=== PATIENT | male | born 1970 | race Caucasian/White ===

== ENCOUNTER 2020-09-19 14:35 | Inpatient (IN) ==
[2020-09-19] MEDS ORDERED: Naloxone 0.4 MG/ML INJ IVP PRN (17:16)
[2020-09-19] MEDS ORDERED: Isovue-370 500 ML BOTTLE IVP ONE (17:48)
[2020-09-19 18:12] LABS: BUN/Creatinine Ratio 14 (6-26); Blood Urea Nitrogen 14 mg/dL (6-20); Calcium 8.2 mg/dL (8.6-10.3); Carbon Dioxide 22 mEq/L (23-29); Chloride 98 mEq/L (98-107); Glucose 104 mg/dL (70-105); Osmolality,Calculated 279 (280-300); Potassium 3.2 mEq/L (3.5-5.1); Sodium 134 mEq/L (136-145); eGFR For African Americans > 60 (> 60); eGFR For Non-African Americans > 60 (> 60)
[2020-09-19] MEDS ORDERED: Ipratropium/Albuterol Neb 3 ML IH PRN (18:21)
[2020-09-19] MEDS: Ringers Solution, Lactated 1,000 ML IVC SCH (18:57)
[2020-09-19 18:58] LABS: Creatine Kinase 130 Units/L (30-223)
[2020-09-19] MEDS: Potassium Chloride Elixir 20 MEQ/15 ML UDC PO SCH ×2 (18:59→22:16)
[2020-09-19] MEDS: Ondansetron 4 MG/2 ML VIAL IVP PRN (19:10)
[2020-09-19 19:11] LABS: Thyroid Stimulating Hormone 2.032 mcIU/mL (0.340-5.600)
[2020-09-19] MEDS: *HR* Heparin 5,000 UNIT/ML VIAL SQ SCH (21:16)
[2020-09-19] MEDS: MetroNIDAZOLE 500 MG/100 ML 500 MG/100 ML BAG IVPB SCH ×3 (21:18→21:35)
[2020-09-20 02:21] LABS: Basophils # 0.1 K/mcL (0.0-0.2); Basophils % 0.4 %; Eosinophils # 0.3 K/mcL (0.0-0.6); Eosinophils % 1.9 %; Hematocrit 33.8 % (37.5-50.1); Hemoglobin 11.2 g/dL (12.9-16.9); Immature Granulocytes % 0.9 % (0-4); Lymphocytes # 3.4 K/mcL (0.6-4.6); Lymphocytes % 26.3 %; Mean Corpuscular HGB Conc 33.1 g/dL (31.6-35.5); Mean Corpuscular Volume 90.6 fL (83.0-100.0); Mean Platelet Volume 10.4 fL (9.4-12.4); Monocytes # 1.1 K/mcL (0.0-1.3); Monocytes % 8.7 %; Platelet Count 293 K/mcL (140-400); Red Blood Count 3.73 M/mcL (4.19-5.50); Red Cell Distribution Width 17.2 % (11.5-14.5); Segmented Neutrophils % 61.8 %; White Blood Count 12.9 K/mcL (4.3-11.1)
[2020-09-20 02:44] LABS: BUN/Creatinine Ratio 11 (6-26); Blood Urea Nitrogen 11 mg/dL (6-20); Calcium 8.1 mg/dL (8.6-10.3); Carbon Dioxide 22 mEq/L (23-29); Chloride 101 mEq/L (98-107); Glucose 99 mg/dL (70-105); Magnesium 1.5 mg/dL (1.6-2.6); Osmolality,Calculated 279 (280-300); Phosphorous 1.9 mg/dL (2.7-4.5); Potassium 3.5 mEq/L (3.5-5.1); Sodium 135 mEq/L (136-145); eGFR For African Americans > 60 (> 60); eGFR For Non-African Americans > 60 (> 60)
[2020-09-20] MEDS: Ringers Solution, Lactated 1,000 ML IVC SCH (05:41)
[2020-09-20] MEDS: *HR* Heparin 5,000 UNIT/ML VIAL SQ SCH ×2 (05:42→18:04)
[2020-09-20] MEDS: MetroNIDAZOLE 500 MG/100 ML 500 MG/100 ML BAG IVPB SCH ×2 (08:20→18:04)
[2020-09-20] MEDS ORDERED: Potassium Phosphate 44 MEQ in 0.9 % Sodium Chloride 250 ML IVPB ONE (08:26)
[2020-09-20] MEDS ORDERED: Cyanocobalamin (B-12) 1,000 MCG/ML VIAL IM ONE (08:26)
[2020-09-20] MEDS ORDERED: Cyanocobalamin (B-12) 1,000 MCG TABLET PO SCH (09:00)
[2020-09-20] MEDS ORDERED: Gadolinium Contrast Agent (WT Based) IV PRN (12:10)
[2020-09-21] MEDS: MetroNIDAZOLE 500 MG/100 ML 500 MG/100 ML BAG IVPB SCH ×3 (01:39→17:32)
[2020-09-21] MEDS: *HR* Heparin 5,000 UNIT/ML VIAL SQ SCH ×2 (06:15→17:40)
[2020-09-21 06:26] LABS: Basophils % 0.3 %; Eosinophils # 0.2 K/mcL (0.0-0.6); Eosinophils % 2.5 %; Hematocrit 32.9 % (37.5-50.1); Hemoglobin 10.8 g/dL (12.9-16.9); Immature Granulocytes % 0.8 % (0-4); Lymphocytes # 1.8 K/mcL (0.6-4.6); Lymphocytes % 20.6 %; Mean Corpuscular HGB Conc 32.8 g/dL (31.6-35.5); Mean Corpuscular Hemoglobin 29.9 pg (28.0-33.3); Mean Corpuscular Volume 91.1 fL (83.0-100.0); Mean Platelet Volume 10.4 fL (9.4-12.4); Monocytes # 0.9 K/mcL (0.0-1.3); Monocytes % 9.6 %; Neutrophils # 5.9 K/mcL (1.6-8.9); Platelet Count 278 K/mcL (140-400); Red Blood Count 3.61 M/mcL (4.19-5.50); Red Cell Distribution Width 17.2 % (11.5-14.5); Segmented Neutrophils % 66.2 %; White Blood Count 8.9 K/mcL (4.3-11.1)
[2020-09-21 06:48] LABS: BUN/Creatinine Ratio 5 (6-26); Blood Urea Nitrogen 5 mg/dL (6-20); Calcium 8.4 mg/dL (8.6-10.3); Carbon Dioxide 23 mEq/L (23-29); Chloride 102 mEq/L (98-107); Glucose 116 mg/dL (70-105); Magnesium 1.6 mg/dL (1.6-2.6); Osmolality,Calculated 278 (280-300); Phosphorous 2.5 mg/dL (2.7-4.5); Potassium 3.4 mEq/L (3.5-5.1); Sodium 135 mEq/L (136-145); eGFR For African Americans > 60 (> 60); eGFR For Non-African Americans > 60 (> 60)
[2020-09-21] MEDS ORDERED: Cyanocobalamin (B-12) 1,000 MCG/ML VIAL IM ONE (07:55)
[2020-09-21] MEDS ORDERED: Potassium Phosphate 44 MEQ in 0.9 % Sodium Chloride 250 ML IVPB ONE (07:57)
[2020-09-21 13:48] LABS: Red Blood Cell,CSF < 2000 RBC/mcL
[2020-09-21 14:24] LABS: Appearance,CSF Clear (Clear)
[2020-09-21 15:27] LABS: Glucose,CSF 71 mg/dL (40-70); Total Protein,CSF 106 mg/dL (15-45)
[2020-09-21] MEDS ORDERED: Acetaminophen 325 MG TABLET PO PRN (16:54)
[2020-09-21] MEDS ORDERED: Immune Glob, Gamma (Gammagard) 10 GM/100 ML INFUS..BTL IVC ONE (17:00)
[2020-09-21] MEDS ORDERED: Immune Glob, Gamma (Gammagard) 30 GM/300 ML INFUS..BTL IVC ONE (17:00)
[2020-09-21] MEDS ORDERED: Immune Glob, Gamma (Gammagard) 20 GM/200 ML INFUS..BTL IVC ONE ×2 (17:00)
[2020-09-21] MEDS ORDERED: Immune Glob, Gamma (Gammagard) 5 GM/50 ML INFUS..BTL IVC ONE ×2 (17:00)
[2020-09-22 01:20] LABS: Basophils % 0.6 %; Eosinophils # 0.1 K/mcL (0.0-0.6); Eosinophils % 1.7 %; Hematocrit 31.9 % (37.5-50.1); Hemoglobin 10.6 g/dL (12.9-16.9); Immature Granulocytes % 1.1 % (0-4); Lymphocytes # 1.4 K/mcL (0.6-4.6); Mean Corpuscular HGB Conc 33.2 g/dL (31.6-35.5); Mean Corpuscular Hemoglobin 30.3 pg (28.0-33.3); Mean Corpuscular Volume 91.1 fL (83.0-100.0); Mean Platelet Volume 10.4 fL (9.4-12.4); Monocytes # 0.7 K/mcL (0.0-1.3); Monocytes % 9.6 %; Neutrophils # 4.8 K/mcL (1.6-8.9); Platelet Count 253 K/mcL (140-400); Red Cell Distribution Width 17.3 % (11.5-14.5); White Blood Count 7.1 K/mcL (4.3-11.1)
[2020-09-22 01:45] LABS: BUN/Creatinine Ratio 6 (6-26); Blood Urea Nitrogen 6 mg/dL (6-20); Calcium 8.2 mg/dL (8.6-10.3); Carbon Dioxide 21 mEq/L (23-29); Chloride 102 mEq/L (98-107); Glucose 110 mg/dL (70-105); Magnesium 1.4 mg/dL (1.6-2.6); Osmolality,Calculated 274 (280-300); Phosphorous 2.2 mg/dL (2.7-4.5); Potassium 3.8 mEq/L (3.5-5.1); Sodium 133 mEq/L (136-145); eGFR For African Americans > 60 (> 60); eGFR For Non-African Americans > 60 (> 60)
[2020-09-22] MEDS: MetroNIDAZOLE 500 MG/100 ML 500 MG/100 ML BAG IVPB SCH (02:16)
[2020-09-22] MEDS: *HR* Heparin 5,000 UNIT/ML VIAL SQ SCH ×2 (06:46→16:50)
[2020-09-22] MEDS ORDERED: Potassium Phosphate 44 MEQ in 0.9 % Sodium Chloride 250 ML IVPB ONE (07:45)
[2020-09-22] MEDS: metroNIDAZOLE 500 MG TABLET PO SCH ×3 (09:33→20:21)
[2020-09-22] MEDS: Cyanocobalamin (B-12) 1,000 MCG TABLET PO SCH (09:33)
[2020-09-22] MEDS ORDERED: Cyanocobalamin (B-12) 1,000 MCG/ML VIAL IM ONE (13:13)
[2020-09-22] MEDS: Gabapentin 100 MG CAPSULE PO SCH ×2 (14:36→20:21)
[2020-09-22] MEDS ORDERED: Immune Glob, Gamma (Gammagard) 5 GM/50 ML INFUS..BTL IVC ONE (17:00)
[2020-09-22] MEDS ORDERED: Immune Glob, Gamma (Gammagard) 20 GM/200 ML INFUS..BTL IVC ONE (17:00)
[2020-09-22] MEDS ORDERED: Immune Glob, Gamma (Gammagard) 30 GM/300 ML INFUS..BTL IVC ONE (17:00)
[2020-09-22] MEDS ORDERED: Immune Glob, Gamma (Gammagard) 10 GM/100 ML INFUS..BTL IVC ONE (17:00)
[2020-09-22] MEDS: Nicotine 21 MG PATCH.TD24 TD SCH (18:33)
[2020-09-23 04:54] LABS: Basophils % 0.5 %; Eosinophils # 0.2 K/mcL (0.0-0.6); Eosinophils % 2.8 %; Hematocrit 31.6 % (37.5-50.1); Hemoglobin 10.1 g/dL (12.9-16.9); Immature Granulocytes % 0.8 % (0-4); Lymphocytes # 1.7 K/mcL (0.6-4.6); Lymphocytes % 25.5 %; Mean Corpuscular Hemoglobin 29.5 pg (28.0-33.3); Mean Corpuscular Volume 92.4 fL (83.0-100.0); Mean Platelet Volume 10.5 fL (9.4-12.4); Monocytes # 0.7 K/mcL (0.0-1.3); Monocytes % 10.2 %; Neutrophils # 3.9 K/mcL (1.6-8.9); Platelet Count 263 K/mcL (140-400); Red Blood Count 3.42 M/mcL (4.19-5.50); Red Cell Distribution Width 17.8 % (11.5-14.5); Segmented Neutrophils % 60.2 %; White Blood Count 6.5 K/mcL (4.3-11.1)
[2020-09-23 05:13] LABS: BUN/Creatinine Ratio 7 (6-26); Blood Urea Nitrogen 7 mg/dL (6-20); Calcium 8.3 mg/dL (8.6-10.3); Carbon Dioxide 21 mEq/L (23-29); Chloride 102 mEq/L (98-107); Glucose 117 mg/dL (70-105); Magnesium 1.8 mg/dL (1.6-2.6); Osmolality,Calculated 271 (280-300); Phosphorous 2.7 mg/dL (2.7-4.5); Potassium 3.7 mEq/L (3.5-5.1); Sodium 131 mEq/L (136-145); eGFR For African Americans > 60 (> 60); eGFR For Non-African Americans > 60 (> 60)
[2020-09-23] MEDS: *HR* Heparin 5,000 UNIT/ML VIAL SQ SCH ×2 (05:26→17:14)
[2020-09-23] MEDS: Gabapentin 100 MG CAPSULE PO SCH ×3 (08:49→23:02)
[2020-09-23] MEDS: Nicotine 21 MG PATCH.TD24 TD SCH (08:49)
[2020-09-23] MEDS: metroNIDAZOLE 500 MG TABLET PO SCH ×3 (08:50→23:02)
[2020-09-23] MEDS: Cyanocobalamin (B-12) 1,000 MCG TABLET PO SCH (08:50)
[2020-09-23] MEDS ORDERED: Immune Glob, Gamma (Gammagard) 5 GM/50 ML INFUS..BTL IVC ONE (17:00)
[2020-09-23] MEDS ORDERED: Immune Glob, Gamma (Gammagard) 20 GM/200 ML INFUS..BTL IVC ONE (17:00)
[2020-09-23] MEDS ORDERED: Immune Glob, Gamma (Gammagard) 10 GM/100 ML INFUS..BTL IVC ONE (17:00)
[2020-09-23] MEDS ORDERED: Immune Glob, Gamma (Gammagard) 30 GM/300 ML INFUS..BTL IVC ONE (17:00)
[2020-09-24 01:53] LABS: Basophils % 0.4 %; Eosinophils # 0.2 K/mcL (0.0-0.6); Eosinophils % 3.2 %; Hematocrit 30.6 % (37.5-50.1); Hemoglobin 10.2 g/dL (12.9-16.9); Immature Granulocytes % 0.8 % (0-4); Lymphocytes # 1.2 K/mcL (0.6-4.6); Lymphocytes % 24.5 %; Mean Corpuscular HGB Conc 33.3 g/dL (31.6-35.5); Mean Corpuscular Hemoglobin 30.5 pg (28.0-33.3); Mean Corpuscular Volume 91.6 fL (83.0-100.0); Mean Platelet Volume 10.5 fL (9.4-12.4); Monocytes # 0.6 K/mcL (0.0-1.3); Monocytes % 11.1 %; Platelet Count 251 K/mcL (140-400); Red Blood Count 3.34 M/mcL (4.19-5.50); Red Cell Distribution Width 17.5 % (11.5-14.5)
[2020-09-24 02:04] LABS: BUN/Creatinine Ratio 6 (6-26); Blood Urea Nitrogen 6 mg/dL (6-20); Calcium 8.5 mg/dL (8.6-10.3); Carbon Dioxide 23 mEq/L (23-29); Chloride 102 mEq/L (98-107); Glucose 110 mg/dL (70-105); Magnesium 1.6 mg/dL (1.6-2.6); Osmolality,Calculated 270 (280-300); Phosphorous 2.9 mg/dL (2.7-4.5); Potassium 3.7 mEq/L (3.5-5.1); Sodium 131 mEq/L (136-145); eGFR For African Americans > 60 (> 60); eGFR For Non-African Americans > 60 (> 60)
[2020-09-24] MEDS: *HR* Heparin 5,000 UNIT/ML VIAL SQ SCH ×2 (06:18→17:29)
[2020-09-24] MEDS: metroNIDAZOLE 500 MG TABLET PO SCH ×3 (07:46→20:09)
[2020-09-24] MEDS: Gabapentin 100 MG CAPSULE PO SCH ×3 (07:46→20:09)
[2020-09-24] MEDS: Cyanocobalamin (B-12) 1,000 MCG TABLET PO SCH (07:47)
[2020-09-24] MEDS: Nicotine 21 MG PATCH.TD24 TD SCH (07:47)
[2020-09-24 10:00] LABS: Borrelia burgdorferi Abs CSF 0.16 LIV (<=0.99)
[2020-09-24] MEDS ORDERED: Immune Glob, Gamma (Gammagard) 5 GM/50 ML INFUS..BTL IVC ONE (17:00)
[2020-09-24] MEDS ORDERED: Immune Glob, Gamma (Gammagard) 20 GM/200 ML INFUS..BTL IVC ONE (17:00)
[2020-09-24] MEDS ORDERED: Immune Glob, Gamma (Gammagard) 10 GM/100 ML INFUS..BTL IVC ONE (17:00)
[2020-09-24] MEDS ORDERED: Immune Glob, Gamma (Gammagard) 30 GM/300 ML INFUS..BTL IVC ONE (17:00)
[2020-09-24] MEDS: Ondansetron 4 MG/2 ML VIAL IVP PRN (19:34)
[2020-09-25] MEDS: *HR* Heparin 5,000 UNIT/ML VIAL SQ SCH ×2 (05:26→16:46)
[2020-09-25 06:09] LABS: Basophils % 0.7 %; Eosinophils # 0.2 K/mcL (0.0-0.6); Eosinophils % 2.8 %; Hematocrit 31.4 % (37.5-50.1); Hemoglobin 10.1 g/dL (12.9-16.9); Immature Granulocytes % 0.9 % (0-4); Lymphocytes # 1.7 K/mcL (0.6-4.6); Mean Corpuscular HGB Conc 32.2 g/dL (31.6-35.5); Mean Corpuscular Hemoglobin 29.6 pg (28.0-33.3); Mean Corpuscular Volume 92.1 fL (83.0-100.0); Mean Platelet Volume 10.9 fL (9.4-12.4); Monocytes # 0.6 K/mcL (0.0-1.3); Monocytes % 11.5 %; Neutrophils # 2.9 K/mcL (1.6-8.9); Platelet Count 264 K/mcL (140-400); Red Blood Count 3.41 M/mcL (4.19-5.50); Red Cell Distribution Width 17.7 % (11.5-14.5); Segmented Neutrophils % 53.1 %; White Blood Count 5.4 K/mcL (4.3-11.1)
[2020-09-25 06:29] LABS: BUN/Creatinine Ratio 6 (6-26); Blood Urea Nitrogen 6 mg/dL (6-20); Calcium 8.8 mg/dL (8.6-10.3); Carbon Dioxide 22 mEq/L (23-29); Chloride 101 mEq/L (98-107); Glucose 91 mg/dL (70-105); Magnesium 1.5 mg/dL (1.6-2.6); Osmolality,Calculated 269 (280-300); Potassium 4.1 mEq/L (3.5-5.1); Sodium 131 mEq/L (136-145); eGFR For African Americans > 60 (> 60); eGFR For Non-African Americans > 60 (> 60)
[2020-09-25] MEDS: Nicotine 21 MG PATCH.TD24 TD SCH (08:14)
[2020-09-25] MEDS: Gabapentin 100 MG CAPSULE PO SCH ×3 (08:14→20:20)
[2020-09-25] MEDS: metroNIDAZOLE 500 MG TABLET PO SCH (08:14)
[2020-09-25] MEDS: Cyanocobalamin (B-12) 1,000 MCG TABLET PO SCH (08:14)
[2020-09-25] MEDS: 0.9 % Sodium Chloride 1,000 ML IVC SCH ×2 (08:15→19:06)
[2020-09-25] MEDS ORDERED: 0.9 % Sodium Chloride 500 ML IVC ONE (10:25)
[2020-09-25 10:31] LABS: Enterovirus RNA Qual (PCR) NOT DETECTED
[2020-09-25] MEDS ORDERED: Isovue-370 500 ML BOTTLE IVP ONE (15:54)
[2020-09-25] MEDS ORDERED: Immune Glob, Gamma (Gammagard) 20 GM/200 ML INFUS..BTL IVC ONE (17:00)
[2020-09-25] MEDS ORDERED: Immune Glob, Gamma (Gammagard) 5 GM/50 ML INFUS..BTL IVC ONE (17:00)
[2020-09-25] MEDS ORDERED: Immune Glob, Gamma (Gammagard) 10 GM/100 ML INFUS..BTL IVC ONE (17:00)
[2020-09-25] MEDS: Ondansetron 4 MG/2 ML VIAL IVP PRN (17:37)
[2020-09-26 04:50] LABS: Basophils % 0.7 %; Eosinophils # 0.1 K/mcL (0.0-0.6); Hematocrit 31.2 % (37.5-50.1); Immature Granulocytes % 0.7 % (0-4); Lymphocytes # 1.8 K/mcL (0.6-4.6); Lymphocytes % 32.7 %; Mean Corpuscular HGB Conc 32.1 g/dL (31.6-35.5); Mean Corpuscular Hemoglobin 29.7 pg (28.0-33.3); Mean Corpuscular Volume 92.6 fL (83.0-100.0); Mean Platelet Volume 10.8 fL (9.4-12.4); Monocytes # 0.7 K/mcL (0.0-1.3); Monocytes % 12.3 %; Neutrophils # 2.9 K/mcL (1.6-8.9); Platelet Count 268 K/mcL (140-400); Red Blood Count 3.37 M/mcL (4.19-5.50); Red Cell Distribution Width 17.9 % (11.5-14.5); Segmented Neutrophils % 51.6 %; White Blood Count 5.6 K/mcL (4.3-11.1)
[2020-09-26 05:05] LABS: BUN/Creatinine Ratio 6 (6-26); Blood Urea Nitrogen 6 mg/dL (6-20); Calcium 8.3 mg/dL (8.6-10.3); Carbon Dioxide 21 mEq/L (23-29); Chloride 103 mEq/L (98-107); Glucose 104 mg/dL (70-105); Magnesium 1.5 mg/dL (1.6-2.6); Osmolality,Calculated 268 (280-300); Phosphorous 2.6 mg/dL (2.7-4.5); Potassium 3.9 mEq/L (3.5-5.1); Sodium 130 mEq/L (136-145); eGFR For African Americans > 60 (> 60); eGFR For Non-African Americans > 60 (> 60)
[2020-09-26] MEDS: *HR* Heparin 5,000 UNIT/ML VIAL SQ SCH ×2 (05:16→17:53)
[2020-09-26] MEDS: Gabapentin 100 MG CAPSULE PO SCH ×3 (09:20→21:25)
[2020-09-26] MEDS: Cyanocobalamin (B-12) 1,000 MCG TABLET PO SCH (09:21)
[2020-09-26] MEDS: Nicotine 21 MG PATCH.TD24 TD SCH (09:21)
[2020-09-26 14:27] LABS: Zinc 82.2 ug/dL (60.0-120.0)
[2020-09-27] MEDS: *HR* Heparin 5,000 UNIT/ML VIAL SQ SCH (05:53)
[2020-09-27 07:11] LABS: Adenovirus Not Detected (Not Detect); Coronavirus 229E Not Detected (Not Detect); Coronavirus HKU1 Not Detected (Not Detect); Coronavirus NL63 Not Detected (Not Detect); Coronavirus OC43 Not Detected (Not Detect)
[2020-09-27 07:12] LABS: Bordetella Pertussis Not Detected (Not Detect); Chlamydophila pneumoniae Not Detected (Not Detect); Human Metapneumovirus Not Detected (Not Detect); Human Rhinovirus/Enterovirus Not Detected (Not Detect); Influenza A Subtype 2009 H1 Not Detected (Not Detect); Influenza B Not Detected (Not Detect); Mycoplasma pneumoniae Not Detected (Not Detect); Parainfluenza Virus 1 Not Detected (Not Detect); Parainfluenza Virus 2 Not Detected (Not Detect); Parainfluenza Virus 3 Not Detected (Not Detect); Parainfluenza Virus 4 Not Detected (Not Detect); Respiratory Syncytial Virus Not Detected (Not Detect); SARS-CoV-2 Not Detected (Not Detect)
[2020-09-27] MEDS: Nicotine 21 MG PATCH.TD24 TD SCH (08:57)
[2020-09-27] MEDS: Cyanocobalamin (B-12) 1,000 MCG TABLET PO SCH (08:58)
[2020-09-27] MEDS: Gabapentin 100 MG CAPSULE PO SCH (08:58)
[2020-09-27 10:30] VITALS: BP 113/74
== END 2020-09-27 11:59 | DRG 872 ==
LOC: 3NENU → SUATTDRO 16:28
PROVIDERS: ADMIT Internal Medicine; ATTEND Internal Medicine

== ENCOUNTER 2020-10-02 12:10 | Observation (INO) ==
[2020-10-02] MEDS ORDERED: Naloxone 0.4 MG/ML INJ IVP PRN (17:08)
[2020-10-02] MEDS ORDERED: Ondansetron 4 MG/2 ML VIAL IVP PRN (17:08)
[2020-10-02] MEDS ORDERED: Gadolinium Contrast Agent (WT Based) IV PRN (17:20)
[2020-10-02 18:24] LABS: Basophils % 0.5 %; Eosinophils # 0.2 K/mcL (0.0-0.6); Eosinophils % 3.7 %; Hematocrit 37.9 % (37.5-50.1); Immature Granulocytes % 0.3 % (0-4); Lymphocytes # 1.6 K/mcL (0.6-4.6); Mean Corpuscular HGB Conc 31.9 g/dL (31.6-35.5); Mean Corpuscular Hemoglobin 29.3 pg (28.0-33.3); Mean Corpuscular Volume 91.8 fL (83.0-100.0); Mean Platelet Volume 10.3 fL (9.4-12.4); Monocytes # 0.9 K/mcL (0.0-1.3); Monocytes % 14.4 %; Neutrophils # 3.4 K/mcL (1.6-8.9); Platelet Count 340 K/mcL (140-400); Red Blood Count 4.13 M/mcL (4.19-5.50); Red Cell Distribution Width 17.5 % (11.5-14.5); Segmented Neutrophils % 55.1 %; White Blood Count 6.2 K/mcL (4.3-11.1)
[2020-10-02 18:26] LABS: Hemoglobin 12.1 g/dL (12.9-16.9)
[2020-10-02 18:43] LABS: Alanine Aminotransferase 13 Units/L (7-52); Albumin 3.8 g/dL (3.5-5.7); Albumin/Globulin Ratio 0.9 (1.1-2.2); Alkaline Phosphatase 89 Units/L (34-104); Aspartate Amino Transferase 26 Units/L (13-39); BUN/Creatinine Ratio 8 (6-26); Bilirubin,Direct 0.1 mg/dL (0.0-0.2); Bilirubin,Indirect 0.5 mg/dL (0.0-1.0); Bilirubin,Total 0.6 mg/dL (0.3-1.0); Blood Urea Nitrogen 8 mg/dL (6-20); Calcium 9.1 mg/dL (8.6-10.3); Carbon Dioxide 23 mEq/L (23-29); Chloride 102 mEq/L (98-107); Globulin 4.2 g/dL (2.4-3.5); Glucose 110 mg/dL (70-105); Magnesium 1.6 mg/dL (1.6-2.6); Osmolality,Calculated 275 (280-300); Sodium 133 mEq/L (136-145); eGFR For African Americans > 60 (> 60); eGFR For Non-African Americans > 60 (> 60)
[2020-10-02] MEDS ORDERED: ALPRAZolam 1 MG TABLET PO ONE (20:00)
[2020-10-02 20:25] LABS: HIV-1&2 Antibody & p24 Ag Nonreactive (Nonreactive)
[2020-10-02 21:13] LABS: Hepatitis B Surface Antigen Nonreactive (Nonreactive)
[2020-10-02] MEDS: Gabapentin 100 MG CAPSULE PO SCH (21:29)
[2020-10-02 21:43] LABS: Hepatitis C Virus Antibody Nonreactive (Nonreactive)
[2020-10-03] MEDS: *HR* Heparin 5,000 UNIT/ML VIAL SQ SCH ×2 (06:20→13:20)
[2020-10-03 07:21] LABS: Basophils % 0.5 %; Eosinophils # 0.3 K/mcL (0.0-0.6); Eosinophils % 3.4 %; Hematocrit 38.7 % (37.5-50.1); Hemoglobin 12.5 g/dL (12.9-16.9); Immature Granulocytes % 0.3 % (0-4); Lymphocytes % 24.7 %; Mean Corpuscular HGB Conc 32.3 g/dL (31.6-35.5); Mean Corpuscular Hemoglobin 29.8 pg (28.0-33.3); Mean Corpuscular Volume 92.4 fL (83.0-100.0); Mean Platelet Volume 10.7 fL (9.4-12.4); Monocytes # 1.2 K/mcL (0.0-1.3); Monocytes % 15.2 %; Neutrophils # 4.4 K/mcL (1.6-8.9); Platelet Count 370 K/mcL (140-400); Red Blood Count 4.19 M/mcL (4.19-5.50); Red Cell Distribution Width 17.7 % (11.5-14.5); Segmented Neutrophils % 55.9 %; White Blood Count 7.9 K/mcL (4.3-11.1)
[2020-10-03 07:43] LABS: BUN/Creatinine Ratio 8 (6-26); Blood Urea Nitrogen 8 mg/dL (6-20); Calcium 9.3 mg/dL (8.6-10.3); Carbon Dioxide 22 mEq/L (23-29); Chloride 102 mEq/L (98-107); Glucose 99 mg/dL (70-105); Magnesium 1.8 mg/dL (1.6-2.6); Osmolality,Calculated 280 (280-300); Potassium 3.9 mEq/L (3.5-5.1); Sodium 136 mEq/L (136-145); eGFR For African Americans > 60 (> 60); eGFR For Non-African Americans > 60 (> 60)
[2020-10-03] MEDS ORDERED: *HR* LORazepam 2 MG/ML VIAL IVP ONE (08:30)
[2020-10-03] MEDS ORDERED: Nicotine 14 MG PATCH.TD24 TD SCH (09:00)
[2020-10-03] MEDS: Gabapentin 100 MG CAPSULE PO SCH ×2 (09:52→16:14)
[2020-10-03] MEDS ORDERED: 0.9 % Sodium Chloride 1,000 ML IVC SCH (13:15)
[2020-10-03] MEDS ORDERED: Cyprohepatdine 4 MG TABLET PO PRN (15:00)
[2020-10-03] MEDS ORDERED: methylPREDNISolone 125 MG/2 ML VIAL IVP ONE (15:00)
[2020-10-03 16:00] LABS: Basophils % 0.4 %; Eosinophils # 0.2 K/mcL (0.0-0.6); Eosinophils % 2.2 %; Hematocrit 39.1 % (37.5-50.1); Hemoglobin 12.5 g/dL (12.9-16.9); Immature Granulocytes % 0.4 % (0-4); Lymphocytes # 1.6 K/mcL (0.6-4.6); Mean Corpuscular Hemoglobin 29.4 pg (28.0-33.3); Mean Platelet Volume 10.5 fL (9.4-12.4); Monocytes # 1.1 K/mcL (0.0-1.3); Monocytes % 13.9 %; Neutrophils # 5.1 K/mcL (1.6-8.9); Platelet Count 373 K/mcL (140-400); Red Blood Count 4.25 M/mcL (4.19-5.50); Red Cell Distribution Width 17.9 % (11.5-14.5); Segmented Neutrophils % 63.1 %; White Blood Count 8.1 K/mcL (4.3-11.1)
[2020-10-03] MEDS ORDERED: diazePAM 10 MG/2 ML SYRINGE IVP SCH (16:00)
[2020-10-03 18:31] VITALS: BP 128/87
== END 2020-10-03 20:00 | disposition short-term general hospital (02) ==
LOC: 2ANU → SUATTDRO 15:18 → ICNU 10-03 17:23
PROVIDERS: ADMIT Pharmacist; ATTEND Pharmacist